=== PATIENT | female | born 1945 | race Caucasian/White ===

== ENCOUNTER 2016-07-12 18:16 | Inpatient (IN) ==
--- NOTE | 2016-07-12 18:38 | Emergency Department Note ---
Disposition Clinical Impression: Peripheral edema, Hypoalbuminemia, Hyperglycemia, Inability to ambulate due to ankle or foot Disposition: Admitted As Inpatient Condition: Fair Referrals: Alexandre Mckay MD [Primary Care Provider] - Forms: ED Satisfaction Letter Extremity Problem HPI - General Chief complaint: ED Extremity Problem,Nontraumatic Stated complaint: leg problem Time Seen by Provider: 07/12/16 18:22 Source: patient Limitations: no limitations Nursing Notes Reviewed: Yes Vital Signs Reviewed: Yes - History of Present Illness HPI Narrative: 70-year-old female presents for evaluation of left leg swelling. Patient injured her leg approximately 5 days ago. She was seen at that time in the emergency Department an x-ray examination done of her left knee and left ankle and no bony fractures or dislocations were found. She does have significant degenerative joint disease. Patient since going home has been getting around with a wheelchair and unable to walk. Her swelling has not improved. She was advised to get a Doppler ultrasound done as an outpatient but is yet to do so. She states the test is not scheduled until Wednesday. Pain Scale: 5 - Related Data Home Medications Medication Instructions Recorded Confirmed Aspirin [Lo-Dose Aspirin EC] 81 mg PO DAILY 03/07/16 07/12/16 Atorvastatin [Lipitor] 40 mg PO HS 03/07/16 07/12/16 Docusate [Colace] 100 mg PO BID 03/07/16 07/12/16 Glimepiride [Amaryl] 2 mg PO 0800 03/07/16 07/12/16 Insulin Glargine [Lantus] 50 unit SQ BID 03/07/16 07/12/16 Lisinopril [Zestril] 40 mg PO DAILY 03/07/16 07/12/16 Metformin HCl [Fortamet] 1,000 mg PO BID 03/07/16 07/12/16 Metoclopramide [Reglan] 10 mg PO QIDAC 03/07/16 07/12/16 Omeprazole 20 mg PO DAILY 03/07/16 07/12/16 Oxybutynin [Ditropan] 5 mg PO BID 03/07/16 07/12/16 Polyethylene Glycol 3350 [MiraLAX] 17 gm PO DAILY 03/07/16 07/12/16 Promethazine [Phenergan] 25 mg PO BID 03/07/16 07/12/16 Previous Rx's Medication Instructions Recorded Ondansetron ODT [Zofran ODT] 4 mg SL Q8HR PRN #14 tab.neldis 07/06/16 Allergies Allergy/AdvReac Type Severity Reaction Status Date / Time No Known Allergies Allergy Verified 07/06/16 14:56 Review of Systems: Constitutional: [Negative for fever and chills.] HENT: [Negative for congestion.] Eyes: [Negative for discharge.] Respiratory: [Negative for shortness of breath.] Cardiovascular: [Negative for chest pain.] Gastrointestinal: [Negative for nausea, vomiting, abdominal pain and diarrhea.] Endocrine: [Negative for excessive thirst,urination] Genitourinary: [Negative for dysuria and frequency.] Musculoskeletal: See history of present illness Skin: [Negative for rash.] Neurological: [Negative for dizziness, localized weakness and headaches.] Psychiatric/Behavioral: [Negative for nervous/anxious.] All other systems reviewed and are negative. Past Medical History - Past Medical History Attestation: Yes The following information was validated with the patient. 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 . The patient appears [symptomatic], nontoxic, and . There is mild pain. HENT: Head: Normocephalic and atraumatic. Right Ear: External ear normal. Left Ear: External ear normal. Nose: Nose normal. Mouth/Throat: Oropharynx is clear and mucous membranes show [good hydration.][] Eyes: Conjunctivae and EOM are normal. Pupils are equal, round, and reactive to light. Right eye exhibits [no] discharge. Left eye exhibits [no] discharge. Neck: Trachea is midline, normal range of motion and [phonation normal]. Neck supple. Cardiovascular: [Regular rhythm], S1 normal, S2 normal, normal heart sounds and intact distal pulses. Exam reveals no gallop and no friction rub. No murmur heard. [Capillary refill is brisk.] [Peripheral pulses are 2+] Pulmonary/Chest: Effort [normal] No stridor. [No] tachypnea. [No] respiratory distress. There are [no] decreased breath sounds. [There no wheezes, no rhonchi , or rales.] Abdominal: Soft. [Bowel sounds are normal]. There exhibits [no] distension and [no] mass. There is no hepatosplenomegaly. There is [no tenderness], [no] CVA tenderness. There is [no rigidity, no rebound, no guarding]. Musculoskeletal: Normal range of motion of uninvolved extremities. There exhibits significant 3+ pitting edema of her left leg and 1+ edema of her right leg.. She has tenderness with range of motion of her knee and left ankle. Her neurovascular status is intact distally Neurological: Patient is alert. Patient displays no atrophy and no tremor. No cranial nerve deficit and exhibits normal muscle tone. Coordination normal. Skin: Skin is warm and dry. No rash noted. No erythema. [Skin color is normal.} Psychiatric: Patient has a normal mood,affect, behavior, judgment, and thought content. Course Course Narrative: Patient shows evidence of hypoalbuminemia on her blood work and blood sugar that is out of control. I discussed the case with Dr. Christensen, who agrees with observation admission for Doppler studies of her left lower extremity to rule out the possibility of DVT, physical rehabilitation, and education related to her swelling. Vital Signs Temperature 99.3 F 07/12/16 18:20 Pulse Rate 96 07/12/16 18:20 Respiratory Rate 16 07/12/16 18:20 Blood Pressure 163/82 07/12/16 18:20 O2 Sat by Pulse Oximetry 98 07/12/16 18:20 Temperature 99.3 F 07/12/16 18:20 Pulse Rate 65 07/12/16 19:12 Respiratory Rate 16 07/12/16 19:12 Blood Pressure 163/82 07/12/16 19:12 O2 Sat by Pulse Oximetry 96 07/12/16 19:12 Oxygen Delivery Oxygen Delivery Room Air Extremity Problem, Nontraumati - Medical Records Medical records reviewed: Yes I reviewed the patient's medical records. XR/XR ankle complete min 3V LT IMPRESSION: No acute osseous abnormality of the left ankle. XR/XR foot 3V LT IMPRESSION: 1. Osteopenia. No acute osseous abnormality of the left foot. 2. Large dorsal soft tissue swelling of the midfoot. 3. Prominent plantar calcaneal spur. XR/XR knee LT limited 1-2V IMPRESSION: 1. No acute osseous abnormality. 2. Mild tricompartmental degenerative changes. 3. Meniscal chondrocalcinosis may indicate CPPD. XR/XR sacrum coccyx IMPRESSION: Osteopenia. No acute osseous abnormality of the sacrum or coccyx. - Lab Data Lab results reviewed: Yes I reviewed the patient's lab results. Result diagrams: 07/12/16 18:40 07/12/16 18:40 Lab Results 07/12/16 07/12/16 07/12/16 Range/Units 18:40 18:40 18:40 WBC 8.5 (4.3-11.1) K/mcL RBC 3.82 (3.82-4.97) M/mcL Hgb 11.8 (11.5-15.4) g/dL Hct 34.6 L (35.3-44.9) % MCV 90.6 (83.0-100.0) fL MCH 30.9 (28.0-33.3) pg MCHC 34.1 (31.6-35.5) g/dL RDW 12.2 (11.5-14.5) % Plt Count 235 (140-400) K/mcL MPV 11.7 (9.4-12.4) fL Immature Gran % 0.4 (0-4) % Seg Neutrophils % 66.0 % Lymphocytes % 24.6 % Monocytes % 6.3 % Eosinophils % 2.2 % Basophils % 0.5 % Neutrophils # 5.6 (1.6-8.9) K/mcL Lymphocytes # 2.1 (0.6-4.6) K/mcL Monocytes # 0.5 (0.0-1.3) K/mcL Eosinophils # 0.2 (0.0-0.6) K/mcL Basophils # 0.0 (0.0-0.2) K/mcL PT 11.6 (9.4-12.1) Seconds INR 1.1 APTT 22.5 L (26.0-36.0) Seconds Sodium 138 (136-145) mEq/L Potassium 4.8 H (3.5-4.5) mEq/L Chloride 101 (98-109) mEq/L Carbon Dioxide 28 (19-29) mEq/L BUN 24 H (7-20) mg/dL Creatinine 0.93 (0.57-1.11) mg/dL Est GFR ( Amer) > 60 (> 60) Est GFR (Non-Af Amer) 59 L (> 60) BUN/Creatinine Ratio 26 (6-26) Glucose 437 H (70-99) mg/dL Calculated Osmolality 309 H (280-300) Calcium 9.1 (8.6-10.8) mg/dL Total Bilirubin 0.2 (0.2-1.2) mg/dL AST 10 (5-34) Units/L ALT 9 (0-55) Units/L Alkaline Phosphatase 80 (38-126) Units/L B-Natriuretic Peptide (0-100) pg/mL Serum Total Protein 6.7 (6.0-8.3) g/dL Albumin 2.3 L (3.5-5.0) g/dL Globulin 4.4 H (2.4-3.5) g/dL Albumin/Globulin Ratio 0.5 L (1.1-2.2) Urine Color (Yellow) Urine Clarity (Clear) Urine pH (5.0-8.0) pH Units Ur Specific [place] (1.010-1.025) Urine Protein (Neg-Trace) mg/dL Urine Glucose (UA) (Normal) mg/dL Urine Ketones (Negative) mg/dL Urine Blood (Negative) Urine Nitrite (Negative) Urine Bilirubin (Negative) Urine Urobilinogen (Normal) mg/dL Ur Leukocyte Esterase (Negative) Urine Microscopic RBC (0-3) per hpf Urine Microscopic WBC (0-3) per hpf Urine Bacteria (None-Few) per hpf Hyaline Casts (None-Few) per lpf Ur Culture Indicated? (NO) 07/12/16 07/12/16 Range/Units 18:40 18:55 WBC (4.3-11.1) K/mcL RBC (3.82-4.97) M/mcL Hgb (11.5-15.4) g/dL Hct (35.3-44.9) % MCV (83.0-100.0) fL MCH (28.0-33.3) pg MCHC (31.6-35.5) g/dL RDW (11.5-14.5) % Plt Count (140-400) K/mcL MPV (9.4-12.4) fL Immature Gran % (0-4) % Seg Neutrophils % % Lymphocytes % % Monocytes % % Eosinophils % % Basophils % % Neutrophils # (1.6-8.9) K/mcL Lymphocytes # (0.6-4.6) K/mcL Monocytes # (0.0-1.3) K/mcL Eosinophils # (0.0-0.6) K/mcL Basophils # (0.0-0.2) K/mcL PT (9.4-12.1) Seconds INR APTT (26.0-36.0) Seconds Sodium (136-145) mEq/L Potassium (3.5-4.5) mEq/L Chloride (98-109) mEq/L Carbon Dioxide (19-29) mEq/L BUN (7-20) mg/dL Creatinine (0.57-1.11) mg/dL Est GFR ( Amer) (> 60) Est GFR (Non-Af Amer) (> 60) BUN/Creatinine Ratio (6-26) Glucose (70-99) mg/dL Calculated Osmolality (280-300) Calcium (8.6-10.8) mg/dL Total Bilirubin (0.2-1.2) mg/dL AST (5-34) Units/L ALT (0-55) Units/L Alkaline Phosphatase (38-126) Units/L B-Natriuretic Peptide 155 H (0-100) pg/mL Serum Total Protein (6.0-8.3) g/dL Albumin (3.5-5.0) g/dL Globulin (2.4-3.5) g/dL Albumin/Globulin Ratio (1.1-2.2) Urine Color Yellow (Yellow) Urine Clarity Slightly Cloudy A (Clear) Urine pH 5.0 (5.0-8.0) pH Units Ur Specific [place] <= 1.005 L (1.010-1.025) Urine Protein Negative (Neg-Trace) mg/dL Urine Glucose (UA) 500 H (Normal) mg/dL Urine Ketones Negative (Negative) mg/dL Urine Blood Moderate H (Negative) Urine Nitrite Positive A (Negative) Urine Bilirubin Negative (Negative) Urine Urobilinogen Normal (Normal) mg/dL Ur Leukocyte Esterase Negative (Negative) Urine Microscopic RBC 5-15 H (0-3) per hpf Urine Microscopic WBC 0-3 (0-3) per hpf Urine Bacteria Moderate H (None-Few) per hpf Hyaline Casts Few (None-Few) per lpf Ur Culture Indicated? YES A (NO)
[2016-07-12 18:55] LABS: INR 1.1; Prothrombin Time 11.6 Seconds (9.4-12.1)
[2016-07-12 18:57] LABS: Activated Partial Thrombo Time 22.5 Seconds (26.0-36.0)
[2016-07-12 18:59] LABS: Basophils % 0.5 %; Eosinophils # 0.2 K/mcL (0.0-0.6); Eosinophils % 2.2 %; Hematocrit 34.6 % (35.3-44.9); Hemoglobin 11.8 g/dL (11.5-15.4); Immature Granulocytes % 0.4 % (0-4); Lymphocytes # 2.1 K/mcL (0.6-4.6); Lymphocytes % 24.6 %; Mean Corpuscular HGB Conc 34.1 g/dL (31.6-35.5); Mean Corpuscular Hemoglobin 30.9 pg (28.0-33.3); Mean Corpuscular Volume 90.6 fL (83.0-100.0); Mean Platelet Volume 11.7 fL (9.4-12.4); Monocytes # 0.5 K/mcL (0.0-1.3); Monocytes % 6.3 %; Neutrophils # 5.6 K/mcL (1.6-8.9); Platelet Count 235 K/mcL (140-400); Red Blood Count 3.82 M/mcL (3.82-4.97); Red Cell Distribution Width 12.2 % (11.5-14.5)
[2016-07-12 19:02] LABS: Bilirubin,Urine Negative (Negative); Blood,Urine Moderate (Negative); Clarity,Urine Slightly Cloudy (Clear); Glucose,Urine (UA) 500 mg/dL (Normal); Ketones,Urine Negative (Negative); Leukocyte Esterase,Urine Negative (Negative); Nitrite,Urine Positive (Negative); Protein,Urine Negative (Neg-Trace); Specific Gravity,Urine <= 1.005 (1.010-1.025); Urobilinogen,Urine Normal (Normal)
[2016-07-12 19:03] LABS: Color,Urine Yellow (Yellow)
[2016-07-12 19:04] LABS: Alanine Aminotransferase 9 Units/L (0-55); Albumin 2.3 g/dL (3.5-5.0); Albumin/Globulin Ratio 0.5 (1.1-2.2); Alkaline Phosphatase 80 Units/L (38-126); Aspartate Amino Transferase 10 Units/L (5-34); BUN/Creatinine Ratio 26 (6-26); Bilirubin,Total 0.2 mg/dL (0.2-1.2); Blood Urea Nitrogen 24 mg/dL (7-20); Calcium 9.1 mg/dL (8.6-10.8); Carbon Dioxide 28 mEq/L (19-29); Chloride 101 mEq/L (98-109); Globulin 4.4 g/dL (2.4-3.5); Glucose 437 mg/dL (70-99); Osmolality,Calculated 309 (280-300); Potassium 4.8 mEq/L (3.5-4.5); Sodium 138 mEq/L (136-145); Total Protein 6.7 g/dL (6.0-8.3); eGFR For African Americans > 60 (> 60); eGFR For Non-African Americans 59 (> 60)
[2016-07-12 19:04] LABS: Bacteria,Urine Moderate per hpf (None-Few); Hyaline Casts,Urine Few per lpf (None-Few); WBC,Urine 0-3 per hpf (0-3)
[2016-07-12] MEDS ORDERED: Naloxone 0.4 MG/ML INJ IVP PRN (19:41)
[2016-07-12] MEDS ORDERED: Acetaminophen 325 MG TABLET PO PRN (19:41)
[2016-07-12] MEDS ORDERED: Insulin Regular, Human 100 UNIT/ML SQ ONE (19:42)
[2016-07-12] MEDS ORDERED: 0.9 % Sodium Chloride 1,000 ML IVC ONE (19:42)
--- NOTE | 2016-07-12 21:24 | Internal Med History&Physical ---
Date of Encounter: 07/12/16 Time of Encounter: 21:00 Assessment and Plan (1) Diabetes mellitus Current visit: Yes Status: Acute Blood sugars greater than 300 and emergency department. Given 20 units of short- acting insulin. We will continue her glimepiride and metformin here in the hospital. Her renal function is adequate to continue the metformin for now. (2) Hypertension Current visit: Yes Status: Acute Blood pressures at goal at the present time. We will continue her home medications and follow her blood pressure. Qualifiers: Qualified Code(s): I10 - Essential (primary) hypertension (3) CVA, old, ataxia Current visit: Yes Status: Acute It's possible she's had a new stroke. She herself doesn't perceive that she is any weaker on the left side and before however. I spoke with Dr. Mckay this evening who is her regular physician. He notes her status the past and will be able to reevaluate her in the morning. (4) Pain and swelling of left lower leg Current visit: No Status: Acute We will get a venous Doppler her tomorrow. (5) Inability to ambulate due to ankle or foot Current visit: Yes Status: Acute She is not obviously had a fracture by previous x-rays. Given her lower extremity at exam I will check a left help film which is best I can tell she has not had yet. She has some baseline deficit of ambulation and transfer but it appears to be worse. She could've had another stroke possibly. We need to rule out DVT and she will be getting an ultrasound tomorrow. We have ordered Lovenox. I discussed this plan with her and she is agreeable to proceed as planned. She denies any pain at this time. The family states that she is unsafe at home and that they are no longer able to care for her adequately. She arrived at the hospital by [employer] squad. In my estimation I agree with the emergency department physician that it is unsafe for her to return to care at home at this time, risks being very high likelihood of a second fall and significant injury given her baseline neurological deficits. Internal Medicine - H&P: HPI Chief complaint: Left lower extremity weakness and swelling and inability to ambulate Admitted From: Emergency Dept Plans for Post Hospital Care: Home History of present illness: Ms. Mandel is a 70 year old female who was brought by squad to the emergency department this evening with inability to ambulate or transfer and left lower extremity edema. Patient reports to me that on July 06 she had a fall while getting ready to get into her truck. She said she hadn't attempted to step up yet as she was preparing to do so she did fall to her left side. She tells me that she has had left-sided weakness in the lower extremity subsequent to strokes in 2004, 2006 and 2010. She reports that she has some baseline left upper extremity weakness. She states she had pain at that time of her fall in the sacral area and left knee, but that she currently does not have any pain is not taking pain medication at home. She went to the emergency department on July 06 following the fall. She had swelling noted of the left lower extremity. X- rays at that visit on July 06 of the left knee showed only mild DJD and possible crystal deposition disease, left foot showed osteopenia and mid foot soft tissue swelling, left ankle x-ray was normal. She was discharged home to the ED at that time. In reviewing the office medical record there were multiple phone calls to her primary care physician's office requesting Kapil lift, wheelchair, home health, etc. She is scheduled to have a venous Doppler of left lower extremity has not have that done yet. She denies history of previous DVT or pulmonary embolus. She feels she is back to her baseline weakness in the left upper and left lower extremity. The family reports they are not able to get her to transfer or ambulate at all and that they cannot handle her at home anymore. He states she is right-hand dominant. She has a walker and a cane at home that she is use for many months. She says she got a wheelchair this week at home. She lives with her , youngest daughter and grandchild. Past Med Surg Social Fam HX - Past Medical History Source: old records reviewed, nursing notes reviewed Medical history: COPD, CVA, diabetes, GERD, hyperlipidemia, hypertension, renal disease (Microalbuminuria), other (She has peripheral neuropathy right foot. She has presumed gastroparesis and reflux chronically.) Psychiatric history: no psych history - Past Surgical History Surgical History: cholecystectomy, other (Tubal ligation. Colonoscopy and EGD by Dr. Lemons in December 2012.) - Social History Smoking Status: Current every day smoker Smokeless Tobacco Status: No Alcohol use: none Drug use: none Internal Medicine - H&P: Meds Aspirin [Lo-Dose Aspirin EC] 81 mg PO DAILY 03/07/16 [History] Atorvastatin [Lipitor] 40 mg PO HS 03/07/16 [History] Docusate [Colace] 100 mg PO BID 03/07/16 [History] Glimepiride [Amaryl] 2 mg PO 0800 03/07/16 [History] Insulin Glargine [Lantus] 50 unit SQ BID 03/07/16 [History] Lisinopril [Zestril] 40 mg PO DAILY 03/07/16 [History] Metformin HCl [Fortamet] 1,000 mg PO BID 03/07/16 [History] Metoclopramide [Reglan] 10 mg PO QIDAC 03/07/16 [History] Omeprazole 20 mg PO DAILY 03/07/16 [History] Oxybutynin [Ditropan] 5 mg PO BID 03/07/16 [History] Polyethylene Glycol 3350 [MiraLAX] 17 gm PO DAILY 03/07/16 [History] Promethazine [Phenergan] 25 mg PO BID 03/07/16 [History] Ondansetron ODT [Zofran ODT] 4 mg SL Q8HR PRN #14 tab.rapdis 07/06/16 [Rx] Allergies No Known Allergies Allergy (Verified 07/06/16 14:56) All Systems PM: A 10-system review of systems was performed and is negative for pertinent findings except as documented above in the HPI. She specifically tells me that she did not have dizziness, palpitations, headache, fever, burning with urination, or urinary frequency. She denies blood in her stool or dark stools. She denies any pain in the last few days. She says her lower extremities are always cold and they don't feel different at this time. She states she's been told in the past that her heartbeat is irregular but doesn't think she's had atrial fibrillation. - Constitutional Vitals: Temp Pulse Resp BP Pulse Ox 97.8 F 80 21 185/77 95 07/12/16 20:40 07/12/16 20:40 07/12/16 20:40 07/12/16 20:40 07/12/16 20:40 General appearance: Present: cooperative, A&O X 3, pleasant, no acute distress, obese, answers questions appropriately - Head Head exam: Present: atraumatic, normocephalic - Eye Eye exam: Present: normal appearance, PERRL, conjuntiva pink, sclera anicteric. Absent: conjunctival injection Pupils: Present: PERRL - Neck Neck exam general surgery: Present: supple, trachea midline. Absent: lymphadenopathy Additional comments: No carotid bruits. - Respiratory Respiratory exam: Present: CTAB. Absent: accessory muscle use, chest wall tenderness, rales, respiratory distress, rhonchi, wheezes, tachypnea - Cardiovascular Cardiovascular exam: Present: irregular rhythm (Occasional premature beat, about every 10th beat it's distinctly premature.), +S1, +S2. Absent: diastolic murmur, gallop, rubs, systolic murmur Additional comments: She has occasional premature beat, about every 10th beat or so. - GI/Abdominal GI/Abdominal exam: Present: normal bowel sounds, soft, no peritoneal signs. Absent: bruit, distended, firm, guarding, rebound, tenderness - Extremities Exam Extremities exam: Present: pedal edema. Absent: calf tenderness, cyanotic, full ROM, normal capillary refill, normal inspection, tenderness Additional comments: Strength in upper extremities demonstrates weakness in the left upper extremity compared with the right. 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 She is able to slowly left her left arm above her head but can't fully extended secondary to weakness. There is no deficit in the right upper extremity. She is able to move her left lower extremity at the hip knee and ankle but less so than the right. Her left lower extremity shows pitting edema pretty much throughout. Both distal extremities are little cold but left ankle significantly more than right ankle. She has some mild left dorsal surface tenderness of the midfoot but it's not significant. There is no discomfort with passive range of motion of the left hip , knee or ankle. At rest of the bed her left lower extremity is shorter by a few centimeters and externally rotated when compared with the right. I don't appreciate pulses in the feet. Capillary refill is delayed in the lower extremities. Internal Med - H&P Results - Labs CBC & Chem 7: 07/12/16 18:40 07/12/16 18:40
[2016-07-12] MEDS: Lisinopril 20 MG TABLET PO SCH (22:11)
[2016-07-12] MEDS: *HR* Metformin 500 MG TABLET PO SCH (23:01)
[2016-07-12] MEDS: Insulin DETEMIR 100 UNIT/ML per UNIT SQ SCH (23:02)
[2016-07-13] MEDS: Ondansetron 4 MG/2 ML VIAL IVP PRN ×2 (06:26→22:30)
[2016-07-13] MEDS ORDERED: *HR* Enoxaparin 40 MG/0.4 ML SYRINGE SQ SCH (07:00)
--- NOTE | 2016-07-13 07:16 | Internal Med Progress Note ---
Date of Encounter: 07/13/16 Time of Encounter: 06:54 - Assessment and plan (1) Pain and swelling of left lower leg Current Visit: Yes Status: Acute Assessment and plan: She is very impressive swelling of the left lower extremity from the thigh to the foot and particularly at the foot and ankle. It is pitting. It is not cyanotic. There is no significant tenderness or bruising. She said this was swollen before the accident but worsened after her fall. We need to rule out DVT. She has already had negative x-rays of the hip and lower extremity. Currently she is unable to adequately move the left lower extremity or stand to bear weight on it. She has gone from ambulation with a hemiwalker to being wheelchair or bedbound. If the venous ultrasound is negative for DVT we will need to consult with orthopedic/sports medicine or PM&R as to what else we can do for her. She could have a hematoma from her fall, but by now I would expect bruising to be present. She is having no cardiovascular or respiratory symptoms associated with this. She was given a dose of Lovenox. Currently she cannot resume her ADLs. (2) Leg pain, left Current Visit: Yes Status: Acute Assessment and plan: Pain as discussed above. Currently she seems fairly comfortable when lying in bed. (3) Inability to ambulate due to ankle or foot Current Visit: Yes Status: Acute Assessment and plan: Discussed as above. We will see if PT and OT can be of benefit. We need to rule out DVT or other etiology to preclude that though. (4) Diabetes mellitus Current Visit: Yes Status: Acute Assessment and plan: She chronically has diabetes which is under poor control. Sugars are elevated. We will continue to monitor. Being more sedentary we anticipate sugars to be elevated more. Her last A1c was 7.9% in February. 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 We will continue to monitor and adjust accordingly. At home I suspect there may be some compliance issues and we will be sure she is back on her usual regimen and see if her blood pressure is under better control. Qualifiers: Qualified Code(s): I10 - Essential (primary) hypertension (6) CVA, old, ataxia Current Visit: Yes Status: Chronic Assessment and plan: She has a history of previous CVAs and left hemiplegia. She typically uses a hemiwalker but is ambulatory. Since the fall and the swelling she has been wheelchair or bed bound. I am concerned about her ability to regain her ADLs. At the present time it is not safe for her to be at home as she is an extreme fall risk. PT and OT have been consult. (7) Chronic vomiting Current Visit: Yes Status: Chronic Assessment and plan: Chronically she has vomiting on a daily basis, usually in the morning. Likely this is gastroparesis. She has had EGD in the past and had gastritis. She takes Reglan on a regular basis. She states she is no worse than her usual at this point (8) DVT prophylaxis Current Visit: Yes Status: Acute Assessment and plan: Lovenox has been started. She is at risk for DVT because of decreased ambulation. She may indeed have a DVT in the left lower extremity and venous Doppler is planned for today. - Subjective Interval history: Patient states that she slept well last night. She denies any cardiac or respiratory symptoms. She vomited a small amount this morning, but she states this is her usual. Her biggest complaint is left lower extremity pain and swelling and difficulties moving it. She reports that at home she has gone from being ambulatory using a hemiwalker to using the wheelchair only. She states the swelling has continued since when she fell, but she said there was some swelling in before the fall. She been trying keep it elevated at home and using ice packs/cool compresses without relief. No bruising on the left lower extremity noted. Her urine returned as possible UTI, patient has had no dysuria, gross hematuria , fever or chills. - Constitutional Vitals: Temp Pulse Resp BP Pulse Ox 97.8 F 71 19 162/64 95 07/13/16 04:00 07/13/16 04:00 07/13/16 04:00 07/13/16 04:00 07/13/16 04:00 General appearance: Present: cooperative, A&O X 3, pleasant, no acute distress, obese, answers questions appropriately Exam: Lying in bed she appears at her baseline mentation gustafson. - Respiratory Respiratory exam: Present: CTAB. Absent: respiratory distress, wheezes, tachypnea - Cardiovascular Cardiovascular exam: Present: RRR (With mild sinus arrhythmia intermittently), + S1, +S2. Absent: systolic murmur - GI/Abdominal Additional comments: Abdomen is obese but nontender. No liver enlargement. No distention. No obvious masses but limited because of her obesity. - Extremities Exam Additional comments: Right lower extremity has appropriate range of motion active and passively. There is no localizing tenderness. She does have a somewhat linear maciel to greenish ecchymosis in the right lateral thigh. Left lower extremity is markedly enlarged and swollen particularly the dorsum of the left foot. This is the side of her hemiplegia, but she is able to slightly bend at the knee and move her foot up and down. She has a pitting edema up into the mid thigh area. Measurement of the calf measured 8 cm below the anterior tibial tuberosity on the right is 38 cm on the left is 45 cm. Thigh measurements 10 cm above the knee is 54 cm on the right and 65 cm on the left. She does not seem to have any localizing areas of tenderness, specifically no calf tenderness, no posterior popliteal masses or tenderness, no redness or linear streaks. I am not able to discern a pulse in the left femoral area the foot is too swollen to feel a pulse. The dorsum of the foot is very edematous and skin is tight. Both lower extremity are warm and dry. There are no open lesions. She does have abrasion from scratching in the left lateral calf area. Internal Medicine: Result - Labs CBC & Chem 7: 07/12/16 18:40 07/12/16 18:40 Labs: Labs from yesterday were reviewed. Her urinalysis shows hematuria and few white blood cells, positive nitrites. Culture is pending. - ABG Interpretation ABG results: PT/INR, D-dimer PT 11.6 Seconds (9.4-12.1) 07/12/16 18:40 - Impressions Impressions Hip X-Ray 07/12/16 22:10 IMPRESSION: 1. Osteopenia. No acute osseous abnormality of the left hip. 2. Peripheral vascular disease. D/ / Ashwin Leal MD / Ashwin Leal MD Interpreting Provider: Ashwin Leal MD Consult Discharge Plan - Plan Referrals: Alexandre Mckay MD [Primary Care Provider] -
[2016-07-13] MEDS: *HR* Glimepiride 2 MG TABLET PO SCH (07:50)
[2016-07-13] MEDS: *HR* Metformin 500 MG TABLET PO SCH ×2 (08:51→17:16)
[2016-07-13] MEDS: Aspirin Enteric Coated 81 MG Tablet PO SCH (08:51)
[2016-07-13] MEDS: Insulin DETEMIR 100 UNIT/ML per UNIT SQ SCH ×2 (08:51→17:16)
[2016-07-13] MEDS: Lisinopril 20 MG TABLET PO SCH (09:36)
[2016-07-13] MEDS ORDERED: *HR* Heparin 5,000 UNIT/ML VIAL IVP ONE (10:38)
[2016-07-13] MEDS ORDERED: *HR* Heparin 5,000 UNIT/ML VIAL IVP PRN ×2 (10:38)
[2016-07-13 11:12] LABS: Hematocrit 32.7 % (35.3-44.9); Hemoglobin 11.3 g/dL (11.5-15.4); Mean Corpuscular HGB Conc 34.6 g/dL (31.6-35.5); Mean Corpuscular Volume 89.6 fL (83.0-100.0); Mean Platelet Volume 11.1 fL (9.4-12.4); Platelet Count 265 K/mcL (140-400); Red Blood Count 3.65 M/mcL (3.82-4.97); Red Cell Distribution Width 12.2 % (11.5-14.5)
[2016-07-13 11:22] LABS: INR 1.1
[2016-07-13 11:25] LABS: Activated Partial Thrombo Time 27.6 Seconds (26.0-36.0)
[2016-07-13 12:55] LABS: Hemoglobin A1C 10.5 %
[2016-07-13] MEDS: Heparin 25,000 UNIT/500 ML D5W 25,000 UNIT/500 ML MLS IVC SCH (13:19)
--- NOTE | 2016-07-13 17:06 | Electrocardiograph Report ---
[place] [id number] Test Date: 2016-07-12 Pat Name: Viri Mandel Department: 2001 Room: 114 Gender: F Executive Manager: Ashwin : 1945 Requested By: Forrest Christensen Order Number: [id number] Reading MD: Crow Flores Measurements Intervals [place] Rate: 64 P: 61 IA: 142 QRS: 60 QRSD: 87 T: 46 QT: 417 QTc: 426 Interpretive Statements SINUS RHYTHM WITH SINUS ARRHYTHMIA Electronically Signed On 07-13-2016 17:05:02 EDT by Crow Flores
--- NOTE | 2016-07-13 18:55 | Event Note ---
Date of Encounter: 07/14/16 Time of Encounter: 18:50 I rechecked this patient this evening. Since making rounds this morning she was found to have a left lower extremity DVT up to the distal iliac. Heparin protocol orders have been given. In the mean time the nurse reported left facial droop that she thought was new for this patient. No troubles with speech or swallowing or handling secretions. No new left upper or lower extremity changes as the patient has a history of chronic left hemiplegia. CT scan of the head was ordered to rule out hemorrhage. No acute changes were noted. Anticoagulation with heparin was started because of the left lower extremity DVT. She denied any cardiac or respiratory symptoms. When I reevaluated the patient she does have subtle left facial droop but I am not certain that it is different from her baseline as seen in the office. The rest of her neuro examination is at baseline. She is getting the heparin infusion without complication. I discussed the DVT issues, the reason to be aggressive with IV infusion, the plan for oral anticoagulant long-term, the risk of CVA as well.
[2016-07-13] MEDS ORDERED: D5% in Water 1,000 ML IVC PRN (23:15)
[2016-07-13] MEDS ORDERED: *HR* Dextrose 50 % in Water (Syg) 50 ML SYRINGE IVP PRN (23:15)
[2016-07-13] MEDS ORDERED: Dextrose Gel 15 GM PO PRN ×2 (23:15)
[2016-07-13] MEDS ORDERED: D5% in 0.9% NACL 1,000 ML IVC SCH (23:15)
--- NOTE | 2016-07-14 06:37 | Internal Med Progress Note ---
Date of Encounter: 07/14/16 Time of Encounter: 06:25 - Assessment and plan (1) Acute deep vein thrombosis (DVT) of iliac vein of left lower extremity Current Visit: Yes Status: Acute Assessment and plan: Patient has left lower extremity DVT at the distal left iliac vein. Currently she is on heparin intravenously and continues with extensive left lower extremity swelling. I will check to see which oral anticoagulant she can be transitioned onto after her intravenous course of heparin. Currently not having any complications such as chest pain or dyspnea suggesting embolization. (2) Pain and swelling of left lower leg Current Visit: Yes Status: Acute Assessment and plan: Continues to have swelling in the left lower extremity, I am surprised she does not have more pain. The dorsum of the left foot is very swollen but possibly not quite as tight and shiny. We are trying to keep it elevated. There is too much swelling to even get Jobst stocking over this (3) Leg pain, left Current Visit: Yes Status: Acute Assessment and plan: DVT left lower extremity. She does not seem to be in much pain. We will see what happens when she bears weight as we increase her ADLs (4) Inability to ambulate due to ankle or foot Current Visit: Yes Status: Acute (5) Diabetes mellitus Current Visit: Yes Status: Acute Assessment and plan: Her sugars were elevated on admission, likely because she had not been compliant with her medicine. She told me that she does not always take her insulin unless her sugars are high. We put her on the regimen that she is on according to the office records and her sugars went too low. We have held her meds and even had to start a glucose IV drip. She did not have any symptoms with low sugars in the 40s to 60s. Her sugars are now starting to come back up. Qualifiers: Diabetes mellitus type: type 2 Diabetes mellitus prison insulin use: without prison use Chronic kidney disease stage: stage 3 (moderate) Qualified Code(s): E11.22 - Type 2 diabetes mellitus with diabetic chronic kidney disease; N18.3 - Chronic kidney disease, stage 3 (moderate) (6) Hypertension Current Visit: Yes Status: Chronic Assessment and plan: Her blood pressures have been mildly elevated. We will monitor. I do not want to over treat at this point. Qualifiers: Hypertension type: essential hypertension Qualified Code(s): I10 - Essential (primary) hypertension (7) CVA, old, ataxia Current Visit: Yes Status: Chronic Assessment and plan: Chronic left hemiplegia. I suspect that the left facial droop is from the old CVA and not a new CVA or TIA as was suspected by the nursing staff. To me she looks her usual self. No speech or swallowing problems. (8) Chronic vomiting Current Visit: Yes Status: Chronic Assessment and plan: She has had chronic reflux/vomiting for years. She has been scoped. She takes Reglan. She only seems to regurgitate small amount. It seems to be usually in the morning. (9) DVT prophylaxis Current Visit: Yes Status: Inactive - Subjective Interval history: Patient had low blood sugars to the night. Glucose drip was started. She denies any chest pain, palpitations, dyspnea, abdominal pain. She has had some nausea. She has not been eating well. Still swelling the left lower extremity but not really complaining of pain. She denies a swallowing or speech problems. - Constitutional Vitals: Temp Pulse Resp BP Pulse Ox 97.6 F 60 18 125/68 95 07/14/16 04:00 07/14/16 04:00 07/14/16 04:00 07/14/16 04:00 07/14/16 04:00 General appearance: Present: cooperative, A&O X 3, pleasant, no acute distress, obese, answers questions appropriately Exam: She follows the back easily during conversation - Respiratory Respiratory exam: Present: CTAB - Cardiovascular Cardiovascular exam: Present: RRR, +S1, +S2 - GI/Abdominal GI/Abdominal exam: Present: soft, no peritoneal signs. Absent: tenderness - Extremities Exam Additional comments: Left lower extremity continues to be markedly swollen particularly the dorsum of the foot. Possibly not quite as tight and shiny. No particular tenderness. Equal temperature to the opposite foot. No cutaneous changes. - Neurological Exam Additional comments: Minimal intermittent left nasolabial fold flattening in asymmetry. Seems better than last night. Speech is good. Internal Medicine: Result - Labs CBC & Chem 7: 07/15/16 05:10 07/15/16 05:10 Labs: Short CBC 07/13/16 Range/Units 11:05 WBC 8.1 (4.3-11.1) K/mcL Hgb 11.3 L (11.5-15.4) g/dL Hct 32.7 L (35.3-44.9) % Plt Count 265 (140-400) K/mcL - ABG Interpretation ABG results: PT/INR, D-dimer PT 12.0 Seconds (9.4-12.1) 07/13/16 11:05 - Impressions Impressions Head CT 07/13/16 11:06 IMPRESSION: 1. No acute intracranial abnormality. 2. Diffuse cerebral atrophy with chronic small vessel ischemic disease. 3. Prior right basal ganglia infarct as discussed above. D/ / Pan Freedman MD / Pan Freedman MD Interpreting Provider: Pan Freedman MD Consult Discharge Plan - Plan Referrals: Alexandre Mckay MD [Primary Care Provider] -
[2016-07-14] MEDS: Lisinopril 20 MG TABLET PO SCH (09:03)
[2016-07-14] MEDS: Aspirin Enteric Coated 81 MG Tablet PO SCH (09:03)
[2016-07-14] MEDS: Nitrofurantoin (BID) 100 MG CAPSULE PO SCH ×2 (09:03→18:16)
[2016-07-14] MEDS: *HR* Glimepiride 2 MG TABLET PO SCH ×2 (09:03→12:55)
[2016-07-14] MEDS: *HR* Metformin 500 MG TABLET PO SCH ×2 (09:04→21:08)
[2016-07-14] MEDS: Insulin DETEMIR 100 UNIT/ML per UNIT SQ SCH ×2 (09:04→21:09)
[2016-07-14] MEDS: Heparin 25,000 UNIT/500 ML D5W 25,000 UNIT/500 ML MLS IVC SCH (10:19)
--- NOTE | 2016-07-14 13:32 | Venous Imaging Report ---
LE Venous Duplex Patient Name:Viri Mandel Order Number:[id number] Procedure Date:07/13/2016 Date:1945ge:70 yrs Gender:Female Location:[facility] Room #: 114B Manager Software Development:Veronica Gan RVT, RDCS Referring MD:Maverick Mclaughlin, cut off sawyer log:Alexandre Mckay MD Reading MD:Parveen Mackey MD Primary Indications:left leg swelling Secondary Indications: Risk Factors Yes/No Anticoagulants No Hx of DVT No Impressions: Lower extremity abnormal deep exam: left iliac through tibial vein demonstrates acute thrombosis. Recommendations: Test completed on 07/13/2016 at 9:48:32 am. Critical findings reported to Dr. Mckay by phone at 9:48:39 am on 07/13/2016 by Veronica Gan RVT, RDCS. Findings Venous Duplex Results: Right: Venous imaging of the lower extremity reveals full patency and normal vessel compressibility of the right common femoral. Doppler signals in the evaluated veins were normal. Left: There is an acute occlusive thrombus seen in the left distal iliac. It demonstrates an incompressible vein. Flow was absent and it did not augment. There is an acute occlusive thrombus seen in the left common femoral. It demonstrates an incompressible vein. Flow was absent and it did not augment. There is an acute occlusive thrombus seen in the left superficial femoral. It demonstrates an incompressible vein. Flow was absent and it did not augment. There is an acute partially occlusive thrombus seen in the left popliteal. It demonstrates a partially compressible vein. Flow was phasic and it did augment. There is an acute partially occlusive thrombus seen in the left posterior tibial. It demonstrates a partially compressible vein. Flow was phasic and it did augment. There is an acute partially occlusive thrombus seen in the left peroneal. It demonstrates a partially compressible vein. Flow was phasic and it did augment. There is an acute occlusive thrombus seen in the left saphenofemoral junction. It demonstrates an incompressible vein. Flow was absent and it did not augment. There is an acute occlusive thrombus seen in the left great saphenous. It demonstrates an incompressible vein. Flow was absent and it did not augment. There is an acute occlusive thrombus seen in the left lesser saphenous. It demonstrates an incompressible vein. Flow was absent and it did not augment. Lower Extremity Venous Duplex Side Vein Compress Spontaneous Flow Augment Diameter (cm) Depth (cm) Left Distal Iliac None no Absent no Left Common Femoral None no Absent no Left Superficial Femoral None no Absent no Left Popliteal Partial Yes Phasic Yes Left Posterior Tibial Partial Yes Phasic Yes Left Peroneal Partial Yes Phasic Yes Left Saphenofemoral Junction None no Absent no Left Great Saphenous None no Absent no Left Lesser Saphenous None no Absent no Right Common Femoral Normal Yes Phasic Yes Updated by Parveen Mackey MD on 07/14/2016 1:28:32 PM electronically signed on 07/14/2016 1:28:44 PM with status of Final
[2016-07-15 05:40] LABS: Hematocrit 34.9 % (35.3-44.9); Hemoglobin 11.8 g/dL (11.5-15.4); Mean Corpuscular HGB Conc 33.8 g/dL (31.6-35.5); Mean Corpuscular Hemoglobin 30.3 pg (28.0-33.3); Mean Corpuscular Volume 89.5 fL (83.0-100.0); Mean Platelet Volume 11.4 fL (9.4-12.4); Platelet Count 299 K/mcL (140-400)
[2016-07-15 05:48] LABS: BUN/Creatinine Ratio 15 (6-26); Blood Urea Nitrogen 12 mg/dL (7-20); Calcium 8.9 mg/dL (8.6-10.8); Carbon Dioxide 25 mEq/L (19-29); Chloride 102 mEq/L (98-109); Glucose 212 mg/dL (70-99); Osmolality,Calculated 292 (280-300); Potassium 4.7 mEq/L (3.5-4.5); Sodium 138 mEq/L (136-145); eGFR For African Americans > 60 (> 60); eGFR For Non-African Americans > 60 (> 60)
[2016-07-15] MEDS: Heparin 25,000 UNIT/500 ML D5W 25,000 UNIT/500 ML MLS IVC SCH (09:20)
--- NOTE | 2016-07-15 09:40 | Internal Med Progress Note ---
Date of Encounter: 07/15/16 Time of Encounter: 09:38 - Assessment and plan (1) Acute deep vein thrombosis (DVT) of iliac vein of left lower extremity Current Visit: Yes Status: Acute Assessment and plan: Acute DVT of the left lower extremity which is extensive and in the iliac vein with secondary extensive swelling left lower extremity. The swelling is not much better. Fortunately she is not in pain. Because of the extent of the DVT and swelling we are going to continue aggressive heparinization and anticoagulation. I will check and see what oral anticoagulant we can transition on to that will be paid for by her insurance plan. With her ambulation problems Coumadin and pro time testing may be difficult to monitor logistically. No complications arising. I discussed the risks of long-term anticoagulation particularly with her fall risk from CVA. We will work on checking her ADLs of ambulation and dressing etc. prior to discharge to home. Will plan PT and OT consultation. (2) Pain and swelling of left lower leg Current Visit: Yes Status: Acute Assessment and plan: Swelling as discussed above. Elevate when in bed. To much swelling to apply a Jobst stocking (3) Leg pain, left Current Visit: Yes Status: Acute Assessment and plan: Not having significant pain at the present time. We will see what happens when she starts to ambulate. (4) Inability to ambulate due to ankle or foot Current Visit: Yes Status: Acute Assessment and plan: We will check her ADLs and safety issues with PT and OT (5) Diabetes mellitus Current Visit: Yes Status: Acute Assessment and plan: Her sugars were going low as I suspect the usual dose per the office chart is not what she really takes at home. We have backed off on her medication. Dose is adjusted. We now need to restart some of her medications as her sugars are now increasing to over 200 again. 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 We will see what happens after she is more ambulatory. Qualifiers: Hypertension type: essential hypertension Qualified Code(s): I10 - Essential (primary) hypertension (7) CVA, old, ataxia Current Visit: Yes Status: Chronic Assessment and plan: Previous right hemispheric basal ganglion CVA with left any plegia. Continued left facial droop/asymmetry and mild weakness of left upper lower extremity and requiring any walker or walker chronically. PT and OT evaluation. Likely she will need swing bed for ongoing therapies. (8) Chronic vomiting Current Visit: Yes Status: Chronic Assessment and plan: Still continues to regurgitate/vomitus small amount particular in the morning. Not unusual and has been worked up in the past. Continues with Reglan. - Subjective Interval history: Patient states she rested well last night. She denies chest pain, palpitation, dyspnea, significant pain. Her bowels have not moved since admission, but she feels like they are related to move now and planning to get to the toilet soon. She continues with swelling in the left lower extremity, but not complaining of pain. She has been up in a chair. One of her daughters is present today and told me that she herself has had a DVT when she was and that she was on "blood there is" for 3 years. Her sister is positive Leiden 5 factor, but she is not. When I asked about Protein S or Protein C deficiency she had never heard of those words. Patient has never had a DVT or blood clotting issues in the past other than having her ischemic CVA in the basal ganglion in the remote past. - Constitutional Vitals: Temp Pulse Resp BP Pulse Ox 96.7 F L 85 18 148/77 97 07/15/16 07:47 07/15/16 07:47 07/15/16 07:47 07/15/16 07:47 07/15/16 07:47 General appearance: Present: cooperative, A&O X 3, pleasant, no acute distress, obese, answers questions appropriately Exam: She answers questions slowly but seems to be appropriate for her age and chronic cognitive function - Respiratory Respiratory exam: Present: CTAB - Cardiovascular Cardiovascular exam: Present: RRR, +S1, +S2. Absent: systolic murmur - GI/Abdominal Additional comments: Abdomen is obese but nontender. Bowel sounds are normal. Examined while seated upright in a chair - Extremities Exam Additional comments: Continued extensive swelling of the left lower extremity with very impressive edema on the dorsum of the left foot. She still has mild pitting and induration of the left lower leg and into the thigh. Surprisingly she is not tender. There is no bruising. There is no redness. - Neurological Exam Additional comments: Chronic left facial droop and asymmetry with smile. She tends to actively hold her mouth to the right side which seemed to accentuate the left-sided facial droop at times. To me she looks the same as she has for a few years. Her speech is slow and deliberate but at baseline. Tongue thrust and motion is normal Internal Medicine: Result - Labs CBC & Chem 7: 07/15/16 05:10 07/15/16 05:10 Labs: Short CBC 07/15/16 Range/Units 05:10 WBC 7.7 (4.3-11.1) K/mcL Hgb 11.8 (11.5-15.4) g/dL Hct 34.9 L (35.3-44.9) % Plt Count 299 (140-400) K/mcL BMP 07/15/16 05:10 Sodium 138 Potassium 4.7 H Chloride 102 Carbon Dioxide 25 BUN 12 D Creatinine 0.78 Glucose 212 H Calcium 8.9 Labs have been reviewed. Potassium minimally elevated. Glucose is going back up again having been low before. CBC stable. - ABG Interpretation ABG results: PT/INR, D-dimer PT 12.0 Seconds (9.4-12.1) 07/13/16 11:05 Consult Discharge Plan - Plan Referrals: Alexandre Mckay MD [Primary Care Provider] -
[2016-07-15] MEDS: Insulin DETEMIR 100 UNIT/ML per UNIT SQ SCH ×3 (10:21→22:36)
[2016-07-15] MEDS: Aspirin Enteric Coated 81 MG Tablet PO SCH (10:21)
[2016-07-15] MEDS: Lisinopril 20 MG TABLET PO SCH (10:21)
[2016-07-15] MEDS: Nitrofurantoin (BID) 100 MG CAPSULE PO SCH ×2 (10:21→16:50)
[2016-07-15] MEDS: *HR* Metformin 500 MG TABLET PO SCH ×2 (10:21→22:34)
[2016-07-15] MEDS: *HR* Glimepiride 2 MG TABLET PO SCH (12:05)
[2016-07-16] MEDS: Insulin DETEMIR 100 UNIT/ML per UNIT SQ SCH ×2 (08:57→20:53)
[2016-07-16] MEDS: Nitrofurantoin (BID) 100 MG CAPSULE PO SCH ×2 (08:57→17:38)
[2016-07-16] MEDS: Aspirin Enteric Coated 81 MG Tablet PO SCH (08:57)
[2016-07-16] MEDS: *HR* Metformin 500 MG TABLET PO SCH ×2 (08:57→20:52)
[2016-07-16] MEDS: Lisinopril 20 MG TABLET PO SCH (08:57)
[2016-07-16] MEDS: Heparin 25,000 UNIT/500 ML D5W 25,000 UNIT/500 ML MLS IVC SCH (10:27)
--- NOTE | 2016-07-16 18:11 | Internal Med Progress Note ---
Date of Encounter: 07/16/16 Time of Encounter: 18:06 - Assessment and plan (1) Acute deep vein thrombosis (DVT) of iliac vein of left lower extremity Current Visit: Yes Status: Acute Assessment and plan: Continued massive swelling of the left lower extremity. We plan to continue IV heparin until clinically improved. I consulted with vascular surgeon Dr. Richter who suggested continuation of heparin until clinically improved. It would not be unusual to go 5-7 days or more. We talked about transition on to an oral agent for long-term anticoagulation and discussed the pros and cons based on co-pay of $42 for a newer agent versus much cheaper Coumadin/warfarin but there is a consideration for pro time testing logistically for this patient who has hemiplegia. For now we will continue the IV heparin. I anticipate it will be a total of 7 days or more of infusion. I discussed with the patient if we are going to use Coumadin we will overlap the medications. Currently no complications noted. (2) Pain and swelling of left lower leg Current Visit: Yes Status: Acute Assessment and plan: As above. She is not having much pain at all. We are trying to keep her leg elevated when she is in bed or chair. (3) Leg pain, left Current Visit: Yes Status: Acute (4) Inability to ambulate due to ankle or foot Current Visit: Yes Status: Acute Assessment and plan: Physical therapy and occupational therapy have been started to help maintain her ADLs, dressing etc. We will limit her physical therapy to "in the room" so she can spend more time with her foot elevated. (5) Diabetes mellitus Current Visit: Yes Status: Acute Assessment and plan: Sugars are under much better control currently. 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 Qualifiers: Hypertension type: essential hypertension Qualified Code(s): I10 - Essential (primary) hypertension (7) CVA, old, ataxia Current Visit: Yes Status: Chronic Assessment and plan: Continued chronic left hemiplegia, but stable. PT and OT are arranged so she can maintain her ADLs with dressing, grooming, transferring, going to and from the bathroom etc. (8) Chronic vomiting Current Visit: Yes Status: Chronic Assessment and plan: She vomited twice late this afternoon. This is a chronic problem. She has had a GI workup. Will follow. - Subjective Interval history: She states that she was doing fine except later this afternoon she vomited twice. She denies chest pain, palpitations, irregular heartbeat. She has no further nausea or vomiting. Family and social security specialist spoke today and after she is discharged from the hospital she will be going to [facility] until she is able to go home and be more independent. There are social issues in the home as well and Adult Protective Services has been called by our social security specialist. - Constitutional Vitals: Temp Pulse Resp BP Pulse Ox 98.3 F 63 16 113/67 98 07/16/16 16:00 07/16/16 16:00 07/16/16 16:00 07/16/16 16:00 07/16/16 16:00 General appearance: Present: cooperative, A&O X 3, pleasant, no acute distress, obese, answers questions appropriately - Respiratory Respiratory exam: Present: CTAB - Cardiovascular Cardiovascular exam: Present: RRR, +S1, +S2. Absent: systolic murmur - GI/Abdominal Additional comments: Abdomen is obese, nontender as evaluated in the chair. - Extremities Exam Additional comments: Continued swelling of the left lower extremity particularly the dorsum of the left foot. It is pitting. She is swelling to the upper thigh. There is no redness. She is not tender. There is no skin breakdown. Internal Medicine: Result - Labs CBC & Chem 7: 07/15/16 05:10 07/15/16 05:10 Labs: Nurses report the PTTs are therapeutic - ABG Interpretation ABG results: PT/INR, D-dimer PT 12.0 Seconds (9.4-12.1) 07/13/16 11:05 Consult Discharge Plan - Plan Referrals: Alexandre Mckay MD [Primary Care Provider] -
[2016-07-16] MEDS: Sennosides/Docusate Sodium TABLET PO SCH (20:53)
--- NOTE | 2016-07-17 07:04 | Internal Med Progress Note ---
Date of Encounter: 07/17/16 Time of Encounter: 06:49 - Assessment and plan (1) Acute deep vein thrombosis (DVT) of iliac vein of left lower extremity Current Visit: Yes Status: Acute Assessment and plan: Extensive left lower extremity DVT and using heparin for anticoagulation. Clinically the swelling is not better. Will plan to continue intravenous heparin, likely for at least a week or more before switching to oral anticoagulant and [facility] and [facility] prior to going home. At the present time not having complications of the DVT or the heparin. PTTs are staying therapeutic. I thought she has had a recent abdominal ultrasound or CT but I do not find anything in [facility]. She is quite obese and so I think it is reasonable to get a CT scan of the abdomen and pelvis to be sure there is not a compressing mass causing the DVT. (2) Pain and swelling of left lower leg Current Visit: Yes Status: Acute Assessment and plan: Surprisingly she does not have as much pain as I would expect. She does have continued severe swelling. Likely the swelling is from the DVT. However, we will try a dose of Lasix to see if this helps relieve some of the fluid. (3) Leg pain, left Current Visit: Yes Status: Acute (4) Inability to ambulate due to ankle or foot Current Visit: Yes Status: Acute Assessment and plan: PT and OT are working with her. We will limit the activities to the room so she can spend more time with foot elevated. Need to maintain her ADLs, dressing , grooming, transfers etc. (5) Diabetes mellitus Current Visit: Yes Status: Acute Assessment and plan: Sugars have been under much better control with modification of her meds. Continue to follow. 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 We will continue to follow. Majority of the pressures are okay. Qualifiers: Hypertension type: essential hypertension Qualified Code(s): I10 - Essential (primary) hypertension (7) CVA, old, ataxia Current Visit: Yes Status: Chronic Assessment and plan: No change in her left hemiplegia status. PT and OT arranged. (8) Chronic vomiting Current Visit: Yes Status: Chronic Assessment and plan: No major change. She continues to have vomiting nearly every day. She refuses Reglan on occasion. (9) Constipation Current Visit: Yes Status: Acute Assessment and plan: She has not had a bowel movement since she was admitted. She is currently taking Reglan and MiraLAX. I have added senna. No bowel movement as of today. Qualifiers: Constipation type: chronic idiopathic constipation Qualified Code(s): K59.04 - Chronic idiopathic constipation - Subjective Interval history: Patient states that she slept well last night. She denies any chest pain, palpitation, dyspnea, abdominal pain. She has some discomfort in the left lower extremity but not severe. Intermittently she does have vomiting, not unusual for her. For some reason last night she declined her Reglan. I again confirmed today that she does plan to go to [facility] after her stay here. She is undecided about long-term anticoagulation by mouth: higher co -pay Xarelto,et al, versus Coumadin which would be cheaper but requires blood draws. [facility] will [facility] so it is not an urgent decision at the present time. - Constitutional Vitals: Temp Pulse Resp BP Pulse Ox 97.9 F 70 16 128/70 92 07/17/16 04:00 07/17/16 04:00 07/17/16 04:00 07/17/16 04:00 07/17/16 04:00 General appearance: Present: cooperative, A&O X 3, pleasant, no acute distress, obese, answers questions appropriately - Respiratory Respiratory exam: Present: CTAB - Cardiovascular Cardiovascular exam: Present: RRR, +S1, +S2. Absent: systolic murmur - GI/Abdominal GI/Abdominal exam: Present: soft. Absent: tenderness - Extremities Exam Additional comments: Continued marked swelling of the left lower extremity particularly the dorsum of the left foot. There is no skin breakdown. The peterson and thigh seems to be more induration than pitting edema. Very mildly tender, no redness, no skin breakdown - Neurological Exam Additional comments: Chronic left-sided plegia with facial asymmetry, slightly slow and dysarthric speech. I did not check muscle strength of her extremities today. Internal Medicine: Result - Labs CBC & Chem 7: 07/15/16 05:10 07/15/16 05:10 - ABG Interpretation ABG results: PT/INR, D-dimer PT 12.0 Seconds (9.4-12.1) 07/13/16 11:05 Consult Discharge Plan - Plan Referrals: Alexandre Mckay MD [Primary Care Provider] -
[2016-07-17] MEDS: Heparin 25,000 UNIT/500 ML D5W 25,000 UNIT/500 ML MLS IVC SCH (07:55)
[2016-07-17] MEDS: Lisinopril 20 MG TABLET PO SCH (09:37)
[2016-07-17] MEDS: Furosemide 40 MG TABLET PO SCH (09:37)
[2016-07-17] MEDS: *HR* Metformin 500 MG TABLET PO SCH ×2 (09:37→23:32)
[2016-07-17] MEDS: Sennosides/Docusate Sodium TABLET PO SCH ×2 (09:38→23:33)
[2016-07-17] MEDS: Aspirin Enteric Coated 81 MG Tablet PO SCH (09:38)
[2016-07-17] MEDS: Nitrofurantoin (BID) 100 MG CAPSULE PO SCH ×2 (09:38→16:35)
[2016-07-17] MEDS: Insulin DETEMIR 100 UNIT/ML X5UNITS SQ SCH ×2 (09:44→23:33)
[2016-07-18] MEDS: Heparin 25,000 UNIT/500 ML D5W 25,000 UNIT/500 ML MLS IVC SCH (06:36)
[2016-07-18] MEDS: *HR* Metformin 500 MG TABLET PO SCH ×2 (09:51→20:56)
[2016-07-18] MEDS: Lisinopril 20 MG TABLET PO SCH (09:51)
[2016-07-18] MEDS: Aspirin Enteric Coated 81 MG Tablet PO SCH (09:51)
[2016-07-18] MEDS: Insulin DETEMIR 100 UNIT/ML X5UNITS SQ SCH ×2 (09:52→20:56)
[2016-07-18] MEDS: Nitrofurantoin (BID) 100 MG CAPSULE PO SCH ×2 (09:52→16:37)
[2016-07-18] MEDS: Sennosides/Docusate Sodium TABLET PO SCH ×2 (09:52→20:57)
[2016-07-18] MEDS: Furosemide 40 MG TABLET PO SCH (09:52)
--- NOTE | 2016-07-18 10:24 | Internal Med Progress Note ---
Date of Encounter: 07/18/16 Time of Encounter: 10:24 - Assessment and plan (1) Acute deep vein thrombosis (DVT) of iliac vein of left lower extremity Current Visit: Yes Status: Acute Assessment and plan: Extensive left lower extremity DVT and using heparin for anticoagulation. Clinically the swelling is not better. Will plan to continue intravenous heparin, likely for at least a week or more before switching to oral anticoagulant and transfer to [facility] for ongoing [facility] and therapy prior to going home. At the present time not having complications of the DVT or the heparin. PTTs are staying therapeutic. her ct of her abd did not show any pelvic or abd mass. it show a lot of constipation. (2) Constipation Current Visit: Yes Status: Acute Assessment and plan: She has not had a bowel movement since she was admitted. She is currently taking Reglan and MiraLAX and senna. She did have a stool on Wednesday. Qualifiers: Constipation type: chronic idiopathic constipation Qualified Code(s): K59.04 - Chronic idiopathic constipation (3) Diabetes mellitus Current Visit: Yes Status: Acute Assessment and plan: Sugars have been under much better control with modification of her meds. Continue to follow. Qualifiers: Diabetes mellitus type: type 2 Diabetes mellitus prison insulin use: with intermodal customer service use Chronic kidney disease stage: stage 3 (moderate) Qualified Code(s): E11.22 - Type 2 diabetes mellitus with diabetic chronic kidney disease; N18.3 - Chronic kidney disease, stage 3 (moderate); Z79.4 - shelter (current) use of insulin (4) Pain and swelling of left lower leg Current Visit: Yes Status: Acute Assessment and plan: pain is under control. She does have continued severe swelling. Likely the swelling is from the DVT. the lasix did not make much difference (5) CVA, old, ataxia Current Visit: Yes Status: Chronic Assessment and plan: No change in her left hemiplegia status. PT and OT arranged. (6) Chronic vomiting Current Visit: Yes Status: Chronic Assessment and plan: No major change. She continues to have vomiting nearly every day. She refuses Reglan on occasion. (7) Hypertension Current Visit: Yes Status: Chronic Assessment and plan: Occasion blood pressures elevated to the 150-160 systolic. We will continue to follow. Majority of the pressures are okay. Qualifiers: Hypertension type: essential hypertension Qualified Code(s): I10 - Essential (primary) hypertension - Subjective Interval history: She is doing okay today. She does not have any pain in her leg. The Lasix did not make any difference in the edema of her left leg. She continues to have an extensive DVT of the left lower extremity she is on IV heparin per Neelam's recommendation until she shows clinical improvement. So far the leg has not shown any clinical improvement. She denies chest pain shortness of breath dizziness or abdominal pain. She did have a stool on Wednesday. She has had emesis she had some today. This is not changed. She denies dysuria hematuria hematochezia. - Constitutional Vitals: Temp Pulse Resp BP Pulse Ox 97.9 F 64 16 148/93 94 07/18/16 08:00 07/18/16 08:00 07/18/16 08:00 07/18/16 08:00 07/18/16 08:00 General appearance: Present: cooperative, A&O X 3, pleasant, no acute distress, obese, answers questions appropriately - Head Head exam: Present: atraumatic - Neck Neck exam general surgery: Present: supple, trachea midline. Absent: lymphadenopathy - Respiratory Respiratory exam: Present: CTAB - Cardiovascular Cardiovascular exam: Present: RRR. Absent: gallop, rubs, systolic murmur - GI/Abdominal GI/Abdominal exam: Present: distended, normal bowel sounds, no peritoneal signs. Absent: rebound, tenderness - Extremities Exam Extremities exam: Present: normal capillary refill, pedal edema (of the entire left lower extremity especially the foot) - Skin Skin exam: Present: dry, warm. Absent: rash Internal Medicine: Result - Labs CBC & Chem 7: 07/15/16 05:10 07/15/16 05:10 - ABG Interpretation ABG results: PT/INR, D-dimer PT 12.0 Seconds (9.4-12.1) 07/13/16 11:05 - Impressions Impressions Abdomen/Pelvis CT 07/17/16 07:21 IMPRESSION: 1. No acute findings within the abdomen. 2. No acute findings within the pelvis. 3. Moderate fecal retention throughout the colon is consistent with the history of constipation. 4. Small midline ventral hernia containing fat, stable. No evidence of obstruction. 5. Small hiatal hernia. 6. There is extensive, asymmetric subcutaneous edema involving the left lower extremity, extending beyond the field of view. D/ / 07/17/2016 09:31:10 Tee Hernandez MD / [place] Interpreting Provider: Tee Hernandez MD Consult Discharge Plan - Plan Referrals: Alexandre Mckay MD [Primary Care Provider] -
[2016-07-19 05:28] LABS: Basophils # 0.1 K/mcL (0.0-0.2); Basophils % 0.8 %; Eosinophils # 0.5 K/mcL (0.0-0.6); Eosinophils % 6.2 %; Hematocrit 31.6 % (35.3-44.9); Hemoglobin 10.5 g/dL (11.5-15.4); Immature Granulocytes % 0.8 % (0-4); Lymphocytes # 1.7 K/mcL (0.6-4.6); Lymphocytes % 22.6 %; Mean Corpuscular HGB Conc 33.2 g/dL (31.6-35.5); Mean Corpuscular Hemoglobin 30.1 pg (28.0-33.3); Mean Corpuscular Volume 90.5 fL (83.0-100.0); Mean Platelet Volume 11.7 fL (9.4-12.4); Monocytes # 0.6 K/mcL (0.0-1.3); Monocytes % 7.8 %; Neutrophils # 4.7 K/mcL (1.6-8.9); Platelet Count 308 K/mcL (140-400); Red Blood Count 3.49 M/mcL (3.82-4.97); Red Cell Distribution Width 12.4 % (11.5-14.5); Segmented Neutrophils % 61.8 %
[2016-07-19 05:42] LABS: BUN/Creatinine Ratio 17 (6-26); Blood Urea Nitrogen 13 mg/dL (7-20); Calcium 8.7 mg/dL (8.6-10.8); Carbon Dioxide 26 mEq/L (19-29); Chloride 102 mEq/L (98-109); Glucose 73 mg/dL (70-99); Osmolality,Calculated 289 (280-300); Potassium 4.2 mEq/L (3.5-4.5); Sodium 140 mEq/L (136-145); eGFR For African Americans > 60 (> 60); eGFR For Non-African Americans > 60 (> 60)
[2016-07-19] MEDS: Heparin 25,000 UNIT/500 ML D5W 25,000 UNIT/500 ML MLS IVC SCH ×3 (05:45→06:00)
[2016-07-19] MEDS: Aspirin Enteric Coated 81 MG Tablet PO SCH (08:44)
[2016-07-19] MEDS: Furosemide 40 MG TABLET PO SCH (08:44)
[2016-07-19] MEDS: *HR* Metformin 500 MG TABLET PO SCH ×2 (08:44→19:52)
[2016-07-19] MEDS: Insulin DETEMIR 100 UNIT/ML X5UNITS SQ SCH (08:44)
[2016-07-19] MEDS: Nitrofurantoin (BID) 100 MG CAPSULE PO SCH ×2 (08:44→16:42)
[2016-07-19] MEDS: Sennosides/Docusate Sodium TABLET PO SCH ×2 (08:45→19:52)
[2016-07-19] MEDS: Lisinopril 20 MG TABLET PO SCH (08:45)
[2016-07-19] MEDS: Ondansetron 4 MG/2 ML VIAL IVP PRN (10:19)
--- NOTE | 2016-07-19 10:23 | Discharge Summary ---
Date of Encounter: 07/19/16 Time of Encounter: 10:20 - Discharge Diagnosis (1) Acute deep vein thrombosis (DVT) of iliac vein of left lower extremity Priority: Primary Status: Acute Comments: She has an extensive DVT from her left iliac vein to her tibial vein. Dr. Mckay verbally consult to Dr. Kang about treatment he recommended that she stay on IV heparin until she showed clinical improvement. She has not really shown any clinical improvement in that leg. Is still very edematous she has mild to no pain in the leg. That leg is flaccid from her CVA. Dr. Mckay did give her a dose of IV Lasix to see if that would help with the edema it did not do anything so no further doses were given. The plan was to keep her on the IV heparin until she showed improvement and then transition her to oral anticoagulation. She did not reach that point she developed significant vaginal bleeding. On speculum exam today it definitely is vaginal bleeding. Consulted [facility] transfer line for transfer for further workup of her postmenopausal vaginal bleeding. She developed a lower extremity DVT after her old CVA. her CVA has not been an issue this admission. (2) Constipation Priority: Secondary Status: Acute Comments: Her last stool was Wednesday she is on MiraLAX Colace and senna. CT scan of her abdomen on Wednesday did show a large amount of stool. This is a chronic issue for her. Currently is not having any abdominal pain. Qualifiers: Constipation type: chronic idiopathic constipation Qualified Code(s): K59.04 - Chronic idiopathic constipation (3) Diabetes mellitus Priority: Secondary Status: Acute Comments: Her sugars were significantly elevated when she came in. She was placed on what was thought to be her home regimen of insulin. Then she got hypoglycemic. Her medications were lowered and her sugars have been controlled since. She likely was not taking as an outpatient basis. Dr. Mckay did contact the pharmacy and she had not picked up prescriptions in quite some time. Qualifiers: Diabetes mellitus type: type 2 Diabetes mellitus skilled nursing insulin use: with lobsterman use Chronic kidney disease stage: stage 3 (moderate) Qualified Code(s): E11.22 - Type 2 diabetes mellitus with diabetic chronic kidney disease; N18.3 - Chronic kidney disease, stage 3 (moderate); Z79.4 - shelter (current) use of insulin (4) Pain and swelling of left lower leg Priority: Secondary Status: Acute (5) CVA, old, ataxia Priority: Secondary Status: Chronic Comments: This CVA happened sometime ago she was stable on her home environment caring for her granddaughter when she developed the acute DVT of the left lower extremity. There was some question whether or not her facial droop changed. A head CT was ordered since she was on a heparin drip to make sure that there was no bleed there was no acute bleed of her head. When Dr. Mckay her primary care physician evaluated her he felt that her face looked the same as it always was in the head CT did not show any changes. (6) Chronic vomiting Priority: Secondary Status: Chronic Comments: This is been a chronic ongoing issue for her she takes Reglan she has had some Zofran here. She has had emesis nearly every day. She denies any abdominal pain CT scan did not show any acute process of the abdomen there was a lot of constipation. (7) Hypertension Priority: Secondary Status: Chronic Qualifiers: Hypertension type: essential hypertension Qualified Code(s): I10 - Essential (primary) hypertension (8) Postmenopausal bleeding Status: Acute Comments: Today on exam she has vaginal bleeding [facility] has been contacted for transfer for further workup of the postmenopausal bleeding. (9) UTI (urinary tract infection) Status: Acute Comments: Her urine on admission grew Escherichia coli she is on Macrobid by mouth for this her culture was sensitive to the Macrobid. She has been afebrile and white count has been normal Qualifiers: Hematuria presence: with hematuria - Discharge Medications Home Medications: Aspirin [Lo-Dose Aspirin EC] 81 mg PO DAILY 03/07/16 [History] Atorvastatin [Lipitor] 40 mg PO HS 03/07/16 [History] Docusate [Colace] 100 mg PO BID 03/07/16 [History] Glimepiride [Amaryl] 2 mg PO 0800 03/07/16 [History] Lisinopril [Zestril] 40 mg PO DAILY 03/07/16 [History] Metformin HCl [Fortamet] 1,000 mg PO BID 03/07/16 [History] Metoclopramide [Reglan] 10 mg PO QIDAC 03/07/16 [History] Omeprazole 20 mg PO DAILY 03/07/16 [History] Oxybutynin [Ditropan] 5 mg PO BID 03/07/16 [History] Polyethylene Glycol 3350 [MiraLAX] 17 gm PO DAILY 03/07/16 [History] Promethazine [Phenergan] 25 mg PO BID 03/07/16 [History] Ondansetron ODT [Zofran ODT] 4 mg SL Q8HR PRN #14 tab.rapdis 07/06/16 [Rx] Acetaminophen [Tylenol] 650 mg PO Q6HR PRN #0 tablet 07/19/16 [Rx] Heparin 3,300 unit IVP Q6H PRN #0 vial 07/19/16 [Rx] Heparin 6,600 unit IVP Q6HR PRN #0 vial 07/19/16 [Rx] Insulin Glargine [Lantus] 10 unit SQ BID #0 07/19/16 [Rx] Nitrofurantoin (BID) [Macrobid] 100 mg PO BIDWM capsule 07/19/16 [Rx] Sennosides/Docusate Sodium [Senna Plus] 1 each PO BID tablet 07/19/16 [Rx] Allergies/Adverse Reactions: Allergies No Known Allergies Allergy (Verified 07/06/16 14:56) Procedures/tests Complete & Pending: Procedures Performed prior 72 hours Category Date Time Status CT abd pelvis wo no iv no oral [CT] Routine Cat Scan 07/17/16 07:21 Completed Date of admission: 07/13/16 10:30 Primary care physician: Alexandre Mckay MD Consults: 07/15/16 09:51 Consult to Occupational Therapy [CONS] Routine Comment: Evaluate, develop and implement POC Reason for Consult: Advance back to ADLs, prior CVA, current LLE DVT/ swelling. Consult to Physical Therapy [CONS] Routine Comment: Evaluate, develop and implement POC Reason for Consult: Prior CVA/ left hemiplegia and walker use.Now left LLE swelling from DVT. Eval for PT and reestablish ADLs for plan for D/C home. - Patient Status Disposition: Transfer Other Condition: Fair Functional capacity at discharge: wheelchair bound Overall status at discharge: patient is not back to baseline - Discharge Instructions Instructions: Diabetes Mellitus Type 2 in Adults (DC), Chronic Hypertension (DC ), Peripheral Vascular Disorders (DC) Follow Up With: Alexandre Mckay MD [Primary Care Provider] - Additional Instructions: Dr. Rasheed at [facility] accepted her in transfer. - Diet and Activity Activity: as per physical therapy Diet: diabetic diet, low salt diet Hospital course: Ms. Mandel is a 70 year old female Who has a history of a remote CVA with a left hemiplegia who presented to the hospital with an acute DVT of her left lower extremity the DVT is quite extensive it is from her left iliac to her left tibial vein. She was on an IV heparin drip for anticoagulation. The leg has not shown any improvement clinically it is still very edematous. The plan was to keep her on IV heparin drip until she showed clinical improvement and then transition her to oral. This morning she developed vaginal bleeding with a moderate amount. On exam it is definitely vaginal bleeding. Her hemoglobin has dropped a gram [facility] has been consult and for transfer further workup of postmenopausal bleeding and whether or not to continue with the IV heparin drip versus IVC filter. There was some question by a nurse whether or not her facial droop or change CT scan of her head was ordered it did not show any bleed or any acute process with her primary care physician evaluated her he felt that her face looked the same as it did at her baseline. She has not noticed any changes in her hemiplegia. Her sugars were elevated when she came in she was placed on that was thought to be her home regimen of insulin her sugars got low Dr. Mckay consult that her pharmacy and it turns out she has not taken up her refills her medication dose was lowered and then her sugars of been stable. She did have a urine culture that grew Escherichia coli sensitive to Macrobid she has been on by mouth Macrobid her white count has remained normal she has been afebrile. Her hypertension has been stable. Her vitals have been stable. She will be transferred to [facility]. - Time Spent with Patient Total time spent providing and/or coordinating discharge services: - Constitutional Vitals: Temp Pulse Resp BP Pulse Ox 98.3 F 63 12 123/73 95 07/19/16 08:00 07/19/16 08:00 07/19/16 08:00 07/19/16 08:00 07/19/16 08:00 General appearance: Present: cooperative, A&O X 3, pleasant, no acute distress, obese, answers questions appropriately - Head Head exam: Present: atraumatic - Neck Neck exam general surgery: Present: supple, trachea midline - Respiratory Respiratory exam: Present: CTAB - Cardiovascular Cardiovascular exam: Present: RRR, +S1, +S2. Absent: systolic murmur, tachycardia - GI/Abdominal GI/Abdominal exam: Present: normal bowel sounds, soft, no peritoneal signs. Absent: guarding, tenderness - Extremities Exam Extremities exam: Present: normal capillary refill, pedal edema (extensive of the the entire left leg) - Neurological Exam Neurological exam: Present: facial droop. Absent: strengths equal and symetr throughout (able to move left forearm but 4/5, flaccid left leg) - Skin Skin exam: Present: dry, warm. Absent: rash
[2016-07-19 19:16] LABS: Basophils # 0.1 K/mcL (0.0-0.2); Basophils % 0.9 %; Eosinophils # 0.4 K/mcL (0.0-0.6); Eosinophils % 4.9 %; Hematocrit 31.8 % (35.3-44.9); Hemoglobin 10.6 g/dL (11.5-15.4); Immature Granulocytes % 0.7 % (0-4); Lymphocytes % 25.4 %; Mean Corpuscular HGB Conc 33.3 g/dL (31.6-35.5); Mean Corpuscular Hemoglobin 30.1 pg (28.0-33.3); Mean Corpuscular Volume 90.3 fL (83.0-100.0); Monocytes # 0.6 K/mcL (0.0-1.3); Monocytes % 7.5 %; Neutrophils # 4.7 K/mcL (1.6-8.9); Platelet Count 305 K/mcL (140-400); Red Blood Count 3.52 M/mcL (3.82-4.97); Red Cell Distribution Width 12.4 % (11.5-14.5); Segmented Neutrophils % 60.6 %
[2016-07-19 19:32] VITALS: BP 128/84
== END 2016-07-19 22:06 | disposition short-term general hospital (02) | DRG 300 ==
LOC: EMEROOGRE 18:16 → INPGRE 18:16
PROVIDERS: ADMIT Family Medicine; ATTEND Family Medicine